=== PATIENT | male | born 1975 ===

== ENCOUNTER 2025-08-14 12:51 | Emergency (ER) | payer BC ==
[2025-08-14 13:55] LABS: BASOPHILS ABSOLUTE AUTO 0.02 K/uL (0.00-0.20); BASOPHILS PERCENT AUTO 0.2 % (0.0-1.0); EOSINOPHILS ABSOLUTE AUTO 0.01 K/uL (0.00-0.45); EOSINOPHILS PERCENT AUTO 0.1 % (0.0-6.0); IMMATURE GRAN ABSOLUTE AUTO 0.05 K/uL (0.00-0.05); IMMATURE GRAN PERCENT AUTO 0.5 % (0.0-0.4); LYMPHOCYTES ABSOLUTE AUTO 0.35 K/uL (1.00-4.80); LYMPHOCYTES PERCENT AUTO 3.6 % (24.0-44.0); MEAN PLATELET VOLUME 9.7 fL (9.4-12.4); MONOCYTES ABSOLUTE AUTO 0.57 K/uL (0.00-0.80); MONOCYTES PERCENT AUTO 5.9 % (0.0-8.0); NEUTROPHILS ABSOLUTE AUTO 8.63 K/uL (1.80-7.70); NEUTROPHILS PERCENT AUTO 89.7 % (41.0-71.0); NRBC ABSOLUTE 0.02 K/uL (0.00-0.02); NRBC PERCENT 0.2 /100WBC (0.0-0.2); PLATELET COUNT,PLT 350 K/uL (150-400); RED BLOOD CELL COUNT 3.45 M/uL (4.52-5.90); WHITE BLOOD CELL COUNT,WBC 9.63 K/uL (3.9-11.3)
[2025-08-14] MEDS: LORazepam 2 MG/ML SDV IVPUSH ONE (14:09)
[2025-08-14] MEDS: Ondansetron 4 MG/2 ML SDV IVPUSH ONE (14:09)
[2025-08-14] MEDS: Ondansetron 4 MG Tab.DIS PO ONE (14:10)
[2025-08-14 14:19] LABS: A/G RATIO 0.8 (0.9-1.6); ALANINE AMINOTRANSFERASE,ALT 25.0 IU/L (14-63); ASPARTATE AMNIOTRANSFERASE,AST 19.0 IU/L (15-37); BILIRUBIN TOTAL 0.6 mg/dL (0.2-1.0); BLOOD UREA NITROGEN,BUN 20.0 mg/dL (7.0-18.0); CARBON DIOXIDE,CO2 22.9 mmol/L (21.0-32.0); CHLORIDE,CL 104.0 mmol/L (98-107); CREATININE 0.9 mg/dL (0.8-1.3); EST CRCL DRUG DOSING (CG) 111.37 mL/min; ESTIMATED GFR 106.0 mL/min (>60); GLUCOSE RANDOM 159.0 mg/dL (74-106); POTASSIUM,K 3.7 mmol/L (3.5-5.1); PROTEIN TOTAL,TP 7.3 g/dL (6.4-8.2); SODIUM,NA 138.0 mmol/L (136-148)
[2025-08-14 16:01] LABS: APPEARANCE,URINE SLT CLOUDY; GLUCOSE,URINE NEGATIVE (NEGATIVE); OCCULT BLOOD,URINE NEGATIVE (NEGATIVE)
[2025-08-14 16:13] LABS: EPITHELIAL CELLS,URINE RARE (NONE-FEW)
[2025-08-14] MEDS: diphenhydrAMINE 50 MG/ML SDV IVPUSH ONE (16:28)
[2025-08-14] MEDS: Labetalol 100 MG/20 ML MDV IVPUSH ONE ×2 (16:32→17:46)
[2025-08-14] MEDS: Iopamidol 755 Mg/ML 100 ML Bottle IVPUSH ONE (16:57)
[2025-08-14] MEDS: Magnesium Sulfate 2 GM/50 mL 2 GM in Premix Bag 1 BAG IV SCH (17:12)
[2025-08-14] MEDS: Labetalol 100 MG/20 ML MDV ONE (17:14)
[2025-08-14] MEDS: fentaNYL 50 MCG/ML SDV IVPUSH ONE (17:42)
[2025-08-14 17:53] LABS: ETHANOL BLOOD MEDICAL <3 mg/dL; TSH ULTRASENSITIVE 2.17 uIU/mL (0.36-3.74)
[2025-08-14] MEDS: Magnesium Sulfate 2 GM/50 mL 2 GM in Premix Bag 1 BAG IV ONE (19:55)
[2025-08-14 20:07] LABS: BASOPHILS ABSOLUTE AUTO 0.03 K/uL (0.00-0.20); BASOPHILS PERCENT AUTO 0.2 % (0.0-1.0); EOSINOPHILS ABSOLUTE AUTO 0.01 K/uL (0.00-0.45); EOSINOPHILS PERCENT AUTO 0.1 % (0.0-6.0); IMMATURE GRAN ABSOLUTE AUTO 0.08 K/uL (0.00-0.05); IMMATURE GRAN PERCENT AUTO 0.6 % (0.0-0.4); LYMPHOCYTES ABSOLUTE AUTO 0.40 K/uL (1.00-4.80); LYMPHOCYTES PERCENT AUTO 3.2 % (24.0-44.0); MEAN PLATELET VOLUME 9.6 fL (9.4-12.4); MONOCYTES ABSOLUTE AUTO 0.83 K/uL (0.00-0.80); MONOCYTES PERCENT AUTO 6.6 % (0.0-8.0); NEUTROPHILS ABSOLUTE AUTO 11.23 K/uL (1.80-7.70); NEUTROPHILS PERCENT AUTO 89.3 % (41.0-71.0); NRBC ABSOLUTE 0.05 K/uL (0.00-0.02); NRBC PERCENT 0.4 /100WBC (0.0-0.2); PLATELET COUNT,PLT 297 K/uL (150-400); RED BLOOD CELL COUNT 4.18 M/uL (4.52-5.90); WHITE BLOOD CELL COUNT,WBC 12.58 K/uL (3.9-11.3)
[2025-08-14 20:22] LABS: INR 1.14 (0.86-1.11)
[2025-08-14 20:26] LABS: AMPHETAMINES SCREEN, URINE NEGATIVE (CUTOFF=500); BUPRENORPHINE SCREEN,URINE NEGATIVE (CUTOFF=10); METHADONE SCREEN, URINE NEGATIVE (CUTOFF=200); METHAMPHETAMINES SCREEN, URINE NEGATIVE (CUTOFF=500); OXYCODONE SCREEN,URINE NEGATIVE (CUT0FF=100); PCP SCREEN,URINE NEGATIVE (CUTOFF=25); THC SCREEN,URINE 20 NG/ML NEGATIVE (CUTOFF=50)
== END 2025-08-14 21:26 ==
LOC: MW.ED 12:51
DX: D64.9 Anemia, unspecified (principal); N39.0 Urinary tract infection, site not specified; E83.42 Hypomagnesemia; I82.220 Acute embolism and thrombosis of inferior vena cava; R94.31 Abnormal electrocardiogram [ECG] [EKG]
CPT/HCPCS: 36415; 36430; 51702; 70450; 71045; 71275; 74174; 80053; 80143; 80179; 80305; 80307; 81001; 83605; 83690; 83735; 84443; 84484; 85025; 85610; 86850; 86900; 86901; 86920; 87040; 87086; 87088; 87186; 93005; 96361; 96365; 96367; 96375; 96376; 99285; J0692; J1200; J1920; J2060; J2270; J2405; J2765; J3010; J3475; J7030; P9016; Q9967; 93010; J1171